=== PATIENT | female | born 1985 | race Caucasian/White ===

== ENCOUNTER 2023-06-14 13:07 | Outpatient (AMB) | payer OTHER, SELFPAY ==
--- NOTE | 2023-06-14 13:09 | A.OFFVIS_ITS ---
Vital Signs 06/14/23 13:28 Height 5 ft 3 in Weight 218 lb BMI 38.6 BP 134/80 Blood Pressure Location Lt brachial Position Sitting Pulse 105 H Pulse Source Pulse Oximeter Pulse Oximetry (%) 98 Oxygen Delivery Method Room Air Intake Visit Reasons: ENP-Needs new Cpap-CONF Intake Note: Patient presents for new CPAP. Pt. has a CPAP machine, the company is [employer] and is not sure why she is here. Allergies No Known Allergies Allergy (Verified 06/14/23 13:19) Medication List - Last Reconciled 06/14/23 by Wesley Escobar CNP cariprazine (Vraylar) 3 mg PO DAILY cetirizine (Zyrtec) 10 mg PO DAILY PRN clonazepam 1 mg PO BEDTIME eszopiclone (Lunesta) 3 mg PO BEDTIME levothyroxine (Synthroid) 25 mcg PO DAILY lisdexamfetamine (Vyvanse) 10 mg PO DAILY paroxetine HCl (Paxil) 10 mg PO DAILY ramelteon 8 mg PO BEDTIME topiramate XR 200 mg PO BID HPI Comments Details: 37 y/o female patient presents for new in-person visit to manage sleep apnea. Certified spanish interpreter/translator Heena Forrest helped for this visit. Pt had a home sleep study done in 01/2023. The home sleep study result was significant for mild-moderate degree of sleep apnea. The AHI was 12/hr and oxygen maira was 75%. Pt started CPAP about a month ago. She uses CPAP nightly but still has difficulty get used to the mask, it irritate her skin, and uncomfortable. She also tried nasal mask. Her home care company is [employer]. Pt reports difficulty falling asleep and staying sleep. She takes lunesta 3 mg, clonazepam 1 mg and remelteon 8 mg for sleep. PFSH Family History (Updated 06/14/23 @ 13:27 by Misty Piña CMA) Father History of high blood pressure High blood sugar Mother High blood sugar History of high blood pressure Social History (Updated 06/14/23 @ 13:28 by Misty Piña CMA) Household Members: Children Housing: Apartment Alcohol intake: never Patient Tobacco Use Status: Never used Tobacco Review of Systems Const All systems reviewed & are unremarkable except as noted in HPI and below Physical Exam Vital Signs: Last Vital Signs Pulse 105 H 06/14/23 13:28 BP 134/80 06/14/23 13:28 Pulse Ox 98 06/14/23 13:28 Oxygen Delivery Method Room Air 06/14/23 13:28 BMI result Body Mass Index 38.6 Const General: cooperative Nutritional Appearance: obese Orientation/consciousness: patient oriented x3 Limitations: language barrier Neck Neck: Yes full ROM and Yes supple Resp Effort & Inspection: normal respiratory effort and able to speak in complete sentences Neuro General: patient oriented x3 and gait normal Cranial nerves: Yes CN's II-XII intact bilaterally Cognition (Neuro): normal cognition Gait exam (Neuro): Normal gait present Motor exam (neuro): 5/5 motor strength present throughout Psych Appearance: grossly normal Mental Status: mental status grossly normal Speech and movement: Normal speech and movement present Affect: normal affect Attitude: cooperative Assessment & Plan Assessment & Plan (1) SANTOS on CPAP: Comment: mild to moderate degree of sleep apnea. The AHI was 12/hr and oxygen maira was 75%. Code(s): G47.33 - Obstructive sleep apnea (adult) (pediatric) Category: Medical Plan Requested CPAP compliance and therapy response from [facility]. Stressed CPAP compliance, use CPAP nightly and more than 4 hrs. Advised patient to try CPAP mask liner to prevent the skin irritation. Coding Level of Care Code New Pt Level 3 (08151) Diagnoses SANTOS on CPAP G47.33
[2023-06-14 13:28] VITALS: BP 134/80; PULSE 105; O2SAT 98; BMI 38.6
== END 2023-06-14 14:03 | disposition home or self-care (01) ==
PROVIDERS: PCP Family Medicine; Visit Provider Nurse Practitioner Family
DX: G47.33 Obstructive sleep apnea (adult) (pediatric) (principal)
CPT/HCPCS: 99203

== ENCOUNTER → 2023-06-14 13:07 | Outpatient (BNVA) | payer OTHER, SELFPAY | PROVIDERS: PCP Family Medicine; Visit Provider Nurse Practitioner Family | DX: G47.33 Obstructive sleep apnea (adult) (pediatric) (principal); Z99.89 Dependence on other enabling machines and devices | CPT/HCPCS: 99202 ==

== ENCOUNTER 2023-12-19 15:27 | Outpatient (AMB) | payer OTHER, SELFPAY ==
[2023-12-19 15:28] VITALS: BMI 39.7
--- NOTE | 2023-12-19 15:28 | MHC.OFFVIS ---
Vital Signs 12/19/23 15:28 Height 5 ft 3 in Weight 224 lb BMI 39.7 Intake Visit Reasons: 6 month F/U Intake Note: Patient presents for 6 month follow up. has not used her CPAP in over a month due to having issues on not getting supplies. Allergies No Known Allergies Allergy (Verified 12/19/23 15:33) HPI Comments Details: 38-yr-old female presents for follow-up visit of sleep apnea. Pt reports she has not been able to use her CPAP machine since September, as she had a COVID-19 infection and also began having issues with her PAP mask to tubing connectors. She requested new PAP supplies however [employer] never sent them to her, so she could not resume using her CPAP machine. She states prior to that she was using her CPAP routinely. Slept well with it however she did have some bothersome air leakage at times. (0 day complaince report shows minimal use, last used in early Sep- shows good reduction in residual AHI < 1/hr, however leaks can be as high as 78 L/min which does not correlate with significant chnage in PAP pressures. PFSH Family History Father History of high blood pressure High blood sugar Mother High blood sugar History of high blood pressure Social History Household Members: Children Housing: Apartment Alcohol intake: never Patient Tobacco Use Status: Never used Tobacco Physical Exam Vital Signs: BMI result Body Mass Index 39.7 Const General: no acute distress Orientation/consciousness: patient oriented x3 HEENT Other: Mallampati stage Resp Effort & Inspection: normal respiratory effort and able to speak in complete sentences Neuro General: patient oriented x3 Psych Mental Status: mental status grossly normal Speech and movement: Clear speech present Attitude: cooperative Assessment & Plan Assessment & Plan (1) SANTOS on CPAP: Comment: mild to moderate degree of sleep apnea. The AHI was 12/hr and oxygen maira was 75%. Code(s): G47.33 - Obstructive sleep apnea (adult) (pediatric) Category: Medical Plan Resume APAP 8-20 cmH2O w/ EPR 1 nightly > 4 hours, as pt has had good clinical effect from use. Pt has only not used PAP tx d/t not having functioning supplies. Thus, will request mask fitting and supplies- in hopes that a different mask may result in decreased bothersome leaks. Clean CPAP machine and supplies routinely. Change CPAP supplies routinely. Pt to contact us or respiratory company with any questions or concerns. Pt to follow-up in 4-6 months or sooner prn. Coding Level of Care Code Est Pt Level 3 (41210) Diagnoses SANTOS on CPAP G47.33
== END 2023-12-19 15:58 | disposition home or self-care (01) ==
LOC: HO.HSMS 15:27
PROVIDERS: PCP Family Medicine; Visit Provider Nurse Practitioner Family
DX: G47.33 Obstructive sleep apnea (adult) (pediatric) (principal)
CPT/HCPCS: 99213

== ENCOUNTER → 2023-12-19 15:27 | Outpatient (BNVA) | payer OTHER, SELFPAY | PROVIDERS: PCP Family Medicine; Visit Provider Nurse Practitioner Family | DX: G47.33 Obstructive sleep apnea (adult) (pediatric) (principal) | CPT/HCPCS: 99212 ==